=== PATIENT | male | born 1990 | race Caucasian/White ===

== ENCOUNTER 2018-01-11 18:55 | Emergency (ER) | payer MEDICAID ==
[~2018-01-11] VITALS: Ht 182.9 cm; Wt 75.3 kg
[~2018-01-11 18:55] MED LIST: CLIN-80 PO
[2018-01-11 19:06] VITALS: BP 106/64
[2018-01-11] MEDS ORDERED: ibuprofen tablet 400 MG TABLET PO ONE (20:05)
== END 2018-01-11 20:16 | disposition home or self-care (01) ==
LOC: ER 18:56
DX: S83.91XA Sprain of unspecified site of right knee, initial encounter (principal); F17.210 Nicotine dependence, cigarettes, uncomplicated; F12.10 Cannabis abuse, uncomplicated; X58.XXXA Exposure to other specified factors, initial encounter; Y93.89 Activity, other specified; Y92.89 Other specified places as the place of occurrence of the external cause; Y99.8 Other external cause status; Z79.899 Other long term (current) drug therapy
CPT/HCPCS: 73564; 99284; A6449

== ENCOUNTER 2018-03-27 10:18 | Emergency (ER) | payer MEDICAID ==
[~2018-03-27] VITALS: Ht 182.9 cm; Wt 78.0 kg
[2018-03-27 10:43] VITALS: BP 108/70
[2018-03-27] MEDS ORDERED: CLIN-80 PO (12:01)
== END 2018-03-27 12:11 | disposition home or self-care (01) ==
LOC: ER 10:18
DX: K04.7 Periapical abscess without sinus (principal); F12.10 Cannabis abuse, uncomplicated; Z79.899 Other long term (current) drug therapy
CPT/HCPCS: 99283

== ENCOUNTER 2018-08-12 14:37 | Emergency (ER) | payer MEDICAID ==
[~2018-08-12] VITALS: Ht 182.9 cm; Wt 75.0 kg
[~2018-08-12 14:37] MED LIST changes: -CLIN-80 PO; +CLIN300C85 PO
[2018-08-12 14:46] VITALS: BP 111/56
[2018-08-12] MEDS ORDERED: IBUP-1984 PO (15:06)
[2018-08-12] MEDS ORDERED: PENI250T2 PO (15:06)
== END 2018-08-12 15:41 | disposition home or self-care (01) ==
LOC: ER 14:37
DX: K04.7 Periapical abscess without sinus (principal); F12.10 Cannabis abuse, uncomplicated
CPT/HCPCS: 99283

== ENCOUNTER 2019-03-27 06:17 | Emergency (ER) | payer MEDICAID ==
[~2019-03-27] VITALS: Ht 182.9 cm; Wt 68.0 kg
[~2019-03-27 06:17] MED LIST changes: +CLIN-96 PO; -CLIN300C85 PO
[2019-03-27 06:22] VITALS: BP 104/64
[2019-03-27] MEDS ORDERED: PENI500T2 PO (06:36)
== END 2019-03-27 06:46 | disposition home or self-care (01) ==
LOC: ER 06:17
DX: K02.9 Dental caries, unspecified (principal); F17.200 Nicotine dependence, unspecified, uncomplicated; F12.90 Cannabis use, unspecified, uncomplicated; Z79.2 Long term (current) use of antibiotics
CPT/HCPCS: 99283

== ENCOUNTER 2019-04-03 08:55 | Emergency (ER) | payer MEDICAID ==
[~2019-04-03] VITALS: Ht 182.9 cm; Wt 66.0 kg
[~2019-04-03 08:55] MED LIST changes: +PENI500T2 PO
[2019-04-03 08:58] VITALS: BP 112/70
== END 2019-04-03 09:24 | disposition home or self-care (01) ==
LOC: ER 08:56
DX: K59.00 Constipation, unspecified (principal); F12.90 Cannabis use, unspecified, uncomplicated; Z79.899 Other long term (current) drug therapy
CPT/HCPCS: 99281

== ENCOUNTER 2019-10-02 05:33 | Emergency (ER) | payer MEDICAID, OTHER ==
[~2019-10-02] VITALS: Ht 182.9 cm; Wt 72.8 kg
[~2019-10-02 05:33] MED LIST changes: +CLIN-90 PO; -CLIN-96 PO; -PENI500T2 PO
[2019-10-02 05:37] VITALS: BP 110/69
[2019-10-02] MEDS ORDERED: CLIN150C8 PO (06:33)
[2019-10-02] MEDS ORDERED: clindamycin 150mg capsule PO ONE (06:35)
== END 2019-10-02 06:51 | disposition home or self-care (01) ==
LOC: ER 05:34
DX: K08.89 Other specified disorders of teeth and supporting structures (principal); K02.9 Dental caries, unspecified; F12.90 Cannabis use, unspecified, uncomplicated; Z79.2 Long term (current) use of antibiotics
CPT/HCPCS: 99283

== ENCOUNTER 2021-05-30 11:16 | Emergency (ER) | payer MEDICAID, OTHER ==
[~2021-05-30 11:16] MED LIST changes: -CLIN-90 PO; +CLIN-97 PO; +CLIN150C8 PO
[2021-05-30 12:10] VITALS: BP 131/71
== END 2021-05-30 18:17 | disposition left against medical advice (07) ==
LOC: ER 11:16
DX: J02.9 Acute pharyngitis, unspecified (principal); Z53.21 Procedure and treatment not carried out due to patient leaving prior to being seen by health care provider; H92.09 Otalgia, unspecified ear

== ENCOUNTER 2021-07-21 15:51 | Emergency (ER) | payer MEDICAID ==
[~2021-07-21] VITALS: Ht 182.9 cm; Wt 79.5 kg
[2021-07-21 16:01] VITALS: BP 127/70
[2021-07-21] MEDS ORDERED: LIDOcaine 1% W/epiNEPHrine 1:200,000 10ml vial IJ ONE (16:05)
[2021-07-21] MEDS ORDERED: TETanus/Pertussis (Acell)/Diphther VAC/PF (Tdap-Adult) 0.5ml syringe IMVAC ONE (16:05)
[2021-07-21] MEDS ORDERED: bacitracin 15gm ointment TP ONE (16:05)
== END 2021-07-21 17:22 | disposition home or self-care (01) ==
LOC: ER 15:52
DX: S61.012A Laceration without foreign body of left thumb without damage to nail, initial encounter (principal); F12.90 Cannabis use, unspecified, uncomplicated; Z79.2 Long term (current) use of antibiotics; W26.0XXA Contact with knife, initial encounter; Y93.89 Activity, other specified; Y92.89 Other specified places as the place of occurrence of the external cause; Y99.8 Other external cause status
CPT/HCPCS: 12001; 99282

== ENCOUNTER 2024-02-06 17:46 | Emergency (ER) | payer MEDICAID ==
[~2024-02-06 17:46] MED LIST changes: +CLIN-214 PO; -CLIN150C8 PO
== END 2024-02-06 18:00 | disposition left against medical advice (07) ==
LOC: ER 17:47
DX: T14.8XXA Other injury of unspecified body region, initial encounter (principal); Z53.21 Procedure and treatment not carried out due to patient leaving prior to being seen by health care provider; X58.XXXA Exposure to other specified factors, initial encounter; Y93.89 Activity, other specified; Y92.89 Other specified places as the place of occurrence of the external cause; Y99.8 Other external cause status

== ENCOUNTER 2024-03-05 17:48 | Emergency (ER) | payer MEDICAID ==
[~2024-03-05] VITALS: Ht 182.9 cm; Wt 92.0 kg
[2024-03-05 18:31] VITALS: BP 114/72; PULSE 76; RESP 16; TEMP 98.1; O2SAT 97
[2024-03-05] MEDS ORDERED: AMOX500C2 PO (18:59)
[2024-03-05] MEDS ORDERED: IBUP-1984 PO (18:59)
[2024-03-05] MEDS: amoxicillin 250mg capsule PO ONE (19:11)
== END 2024-03-05 19:17 | disposition home or self-care (01) ==
LOC: ER 17:49
DX: K04.7 Periapical abscess without sinus (principal); F15.90 Other stimulant use, unspecified, uncomplicated; Z79.899 Other long term (current) drug therapy; Z79.2 Long term (current) use of antibiotics
CPT/HCPCS: 99283